=== PATIENT | male | born 1990 | race Caucasian/White ===

== ENCOUNTER 2020-09-05 08:55 | Day surgery (SDC) | payer OTHER, SELFPAY ==
[~2020-09-05] VITALS: Ht 170.2 cm; Wt 82.6 kg
[2020-09-05] MEDS ORDERED: fentaNYL citrate 0.05 MG/ML VIAL ONE (11:07)
[2020-09-05] MEDS ORDERED: MIDAZOLAM 5 MG/5 ML VIAL ONE (11:07)
[2020-09-05] MEDS ORDERED: MIDAZOLAM 2 MG/2 ML VIAL IVP ONE (11:50)
== END 2020-09-05 12:30 | disposition home or self-care (01) ==
LOC: MDS 08:55 → MMU 08:56 → MDS 12:30
PROVIDERS: ATTEND Internal Medicine Gastroenterology
DX: R13.10 Dysphagia, unspecified (principal); R07.0 Pain in throat; K20.90 Esophagitis, unspecified without bleeding; Z20.828 Contact with and (suspected) exposure to other viral communicable diseases
CPT/HCPCS: 43235; J2250; U0003; J3010